=== PATIENT | male | born 1985 | race Caucasian/White ===

== ENCOUNTER 2016-11-06 13:27 | Emergency (ER) | payer OTHER ==
[2016-11-06 13:37] VITALS: BP 138/85
[2016-11-06] MEDS ORDERED: Cephalexin 500 MG Cap PO ONE (13:50)
[2016-11-06] MEDS ORDERED: Mupirocin Oint 22 GM Tube TOP STA (13:50)
[2016-11-06] MEDS ORDERED: Bacitracin Oint 1 GM U/D Packet ONE (13:55)
--- NOTE | 2016-11-06 13:55 | EDM.PDOC ---
ED HPI Skin/Rash - General Chief Complaint: Skin Complaint Stated Complaint: [id number] INFECTED BOIL Time Seen by Provider: 11/06/16 13:50 Source: Reports: Patient History Limitations: Reports: No limitations - History of Present Illness INITIAL COMMENTS - FREE TEXT/NARRATIVE: 31 yo white male c/o right lateral buttock and thigh redness w/ swelling X 3 days. No fever or chills. Pt. believes he may have gotten bit by insect. Symptom Onset Date: 11/03/16 Symptom Onset Time: 12:00 Location, Skin: Reports: lower extremity, right Severity: moderate Known Identified Source: possible/maybe (insect bite to right buttock) Place of Occurrence: home Sick Contact: no Associated Symptoms: Reports: no other symptoms Similar Symptoms Previously: no Recent Medical Care: no - Related Data Allergies Allergy/AdvReac Type Severity Reaction Status Date / Time No Known Allergies Allergy Verified 11/06/16 13:32 Home Meds: Ambulatory Orders Medication Instructions Recorded Confirmed . [No Known Home Meds] 11/06/16 11/06/16 ED ROS GENERAL - Review of Systems Review Of Systems: See Below Constitutional: Reports: no symptoms HEENT: Reports: No symptoms Respiratory: Reports: No Symptoms Cardiovascular: Reports: No symptoms Endocrine: Reports: no symptoms GI/Abdominal: Reports: No symptoms : Reports: no symptoms Musculoskeletal: Reports: no symptoms Skin: Reports: erythema (right buttock and upper right thigh area) Neurological: Reports: No Symptoms Psychiatric: Reports: No symptoms Hematologic/Lymphatic: Reports: no symptoms Immunologic: Reports: no symptoms ED EXAM, SKIN/RASH Exam: See Below Exam Limited By: No limitations General Appearance: alert, no apparent distress Skin: Erythema (4cm area of erythema to right buttock extending to right upper thigh w/o fluctuant) Location, Skin: lower extremity, right (and buttock) Characteristics: macular, erythematous, necrotic (in center of erythema of buttock) Lymphatic: no adenopathy Course - Vital Signs Last Recorded V/S: Last Vital Signs Temp 36.4 C 11/06/16 13:34 Pulse 93 11/06/16 13:34 Resp 20 11/06/16 13:34 BP 138/85 11/06/16 13:34 Pulse Ox 97 11/06/16 13:34 Departure - Departure Time of Disposition: 13:57 Disposition: Home, Self-Care 01 Condition: good Clinical Impression: Cellulitis Qualifiers: Site of cellulitis: buttock Qualified Code(s): L03.317 - Cellulitis of buttock Infected insect bite of buttock Qualifiers: Encounter type: initial encounter Qualified Code(s): S30.860A - Insect bite ( nonvenomous) of lower back and pelvis, initial encounter; L08.9 - Local infection of the skin and subcutaneous tissue, unspecified; W57.XXXA - Bitten or stung by nonvenomous insect and other nonvenomous arthropods, initial encounter Forms: ED Department Discharge Additional Instructions: Keep area clean and dry Apply Bactroban Oint. to area BID # 22grams Take the Keflex 500mg BID # 14 You may apply a towel over area and then Ice Pack TID X 15 mins. F/U w/ PCP
== END 2016-11-06 14:02 | disposition home or self-care (01) ==
LOC: DL.ED 13:27
DX: S30.860A Insect bite (nonvenomous) of lower back and pelvis, initial encounter (principal); L03.317 Cellulitis of buttock; W57.XXXA Bitten or stung by nonvenomous insect and other nonvenomous arthropods, initial encounter; Y92.009 Unspecified place in unspecified non-institutional (private) residence as the place of occurrence of the external cause
CPT/HCPCS: 99283; A9270